=== PATIENT | female | born 1990 | race Caucasian/White ===

== ENCOUNTER 2020-10-27 14:02 | Inpatient (IN) | payer BC, SELFPAY ==
[~2020-10-27] VITALS: Ht 160 cm; Wt 88.0 kg
[2020-10-27] MEDS ORDERED: DINOPROSTONE 10 MG SUPP VG ONE (14:30)
[2020-10-27 15:01] LABS: BASOPHILS % (AUTO) 0.2 % (0.0-2.0); EOSINOPHILS % (AUTO) 0.4 % (0.0-4.0); HEMATOCRIT 32.2 % (36-48); HEMOGLOBIN 10.7 g/dL (12.0-16.0); LYMPHOCYTES # (AUTO) 2.1 K/uL (1.0-5.5); LYMPHOCYTES % (AUTO) 17.7 % (20.5-51.5); MEAN CORPUSCULAR HEMOGLOBIN 30 pg (27-31); MEAN CORPUSCULAR HGB CONC 33 % (32-36); MEAN CORPUSCULAR VOLUME 89 fL (79.0-98.0); MONOCYTES # (AUTO) 0.9 K/uL (0.0-1.0); MONOCYTES % (AUTO) 7.5 % (1.7-9.3); NEUTROPHILS # (AUTO) 8.9 K/uL (1.8-7.7); NEUTROPHILS % (AUTO) 74.2 % (40.0-70.0); PLATELET COUNT (AUTO) 337 K/uL (130-430); RED BLOOD CELL COUNT(AUTO) 3.62 MIL/uL (4.2-6.2); RED CELL DISTRIBUTION WIDTH 13.8 % (9.0-15.0)
[2020-10-27 15:06] LABS: BILIRUBIN,URINE NEGATIVE (NEGATIVE); COLOR,URINE YELLOW (YELLOW); GLUCOSE,URINE NEGATIVE (NEGATIVE); KETONES,URINE TRACE (NEGATIVE); LEUKOCYTE ESTERASE ,URINE NEGATIVE (NEGATIVE); NITRITE, URINE NEGATIVE (NEGATIVE); PROTEIN URINE NEGATIVE (NEGATIVE); UROBILINOGEN,URINE 0.2 (0.2-1.0)
[2020-10-27 15:08] LABS: BLOOD, URINE TRACE (NEGATIVE); CLARITY/URINE SLIGHTLY HAZY (CLEAR)
[2020-10-27 15:14] LABS: BACTERIA,URINE FEW /HPF (None Seen); RBC,URINE 0-3 /HPF (0-3); WBC,URINE NONE SEEN /HPF (0-3)
[2020-10-27 20:33] VITALS: BP_SYST 116
[2020-10-27] MEDS: NALBUPHINE HCL 10 MG/ML AMP IM PRN (22:22)
[2020-10-27] MEDS: LR 1,000 ML IV SCH (22:24)
[2020-10-28] MEDS: MISOPROSTOL 100 MCG TABLET (CYTOTEC) PO PRN ×2 (03:55→05:50)
[2020-10-28] MEDS: LR 1,000 ML IV SCH ×2 (05:50→23:10)
[2020-10-28] MEDS ORDERED: LIDOCAINE JELLY 5 ML TUBE MM PRN (10:00)
[2020-10-28] MEDS ORDERED: MISOPROSTOL 100 MCG TABLET (CYTOTEC) PO PRN (15:00)
[2020-10-28] MEDS ORDERED: OXYTOCIN/0.9 % SODIUM CHLORIDE 1,000 ML IV SCH (15:00)
[2020-10-28] MEDS ORDERED: LIDOCAINE 2% JELLY UROJECT 10 ML MM PRN (15:11)
[2020-10-28] MEDS: NALBUPHINE HCL 10 MG/ML AMP IM PRN (21:47)
[2020-10-28] MEDS ORDERED: fentaNYL CITRATE/PF 100 MCG/2 ML AMP ONE (22:55)
[2020-10-28] MEDS ORDERED: ROPIVACAINE HCL/PF 0.2% 200 ML ONE (22:55)
[2020-10-29] MEDS: LR 1,000 ML IV SCH ×2 (01:20→08:47)
[2020-10-29] MEDS ORDERED: OXYTOCIN/0.9 % SODIUM CHLORIDE 1,000 ML IV ONE ×2 (04:43→11:00)
[2020-10-29] MEDS ORDERED: HYDROcodone/ACETAMIN 5-325 MG TAB (NORCO/ VICODIN) PO PRN (11:00)
[2020-10-29] MEDS ORDERED: METHYLERGONOVINE MALEATE 0.2 MG TABLET PO PRN (11:00)
[2020-10-29] MEDS ORDERED: WITCH HAZEL LEAF 1 MED.PAD MED.PAD TP PRN (11:00)
[2020-10-29] MEDS ORDERED: NALOXONE HCL 0.4 MG/ML AMP (NARCAN) IVP PRN (11:00)
[2020-10-29] MEDS ORDERED: DIPH-TET-PERTUS Vaccine 0.5 ML VIAL (ADACEL) I.M. PRN (11:00)
[2020-10-29] MEDS ORDERED: OXYTOCIN/0.9 % SODIUM CHLORIDE 1,000 ML IV SCH (11:00)
[2020-10-29] MEDS ORDERED: ANUSOL 1 EA SUPP.RECT (PREPARATION H) RC PRN (11:00)
[2020-10-29] MEDS ORDERED: HYDROCORTISONE 0.5% CREAM 28.4 GM CREAM.GM. TP PRN (11:00)
[2020-10-29] MEDS ORDERED: DERMOPLAST SPRAY TP PRN (11:00)
[2020-10-29] MEDS ORDERED: OXYCODONE/ACETAMINOPHEN 5-325 TABLET PO PRN (11:00)
[2020-10-29] MEDS ORDERED: RHO(D) IMMUNE GLOBULIN/MALTOSE 1500 UNITS/1.3 ML (WINHRO) IM PRN (11:00)
[2020-10-29] MEDS ORDERED: LANOLIN 7 GM OINT. TP PRN (11:00)
[2020-10-29] MEDS ORDERED: MEASLES,MUMPS&RUBELLA VACC/PF 12500 UNIT/0.5 ML VIAL SUBQ PRN (11:00)
[2020-10-29] MEDS: IBUPROFEN 600 MG TABLET PO SCH ×3 (12:25→23:34)
[2020-10-29 19:06] LABS: FTA-Ab (T PALLIDUM) Non Reactive (Non Reactive)
[2020-10-29] MEDS ORDERED: TEMAZEPAM 15 MG CAPSULE PO PRN (21:00)
[2020-10-29] MEDS ORDERED: SENNOSIDES/DOCUSATE SODIUM 1 TAB TABLET(SENOKOT-S) PO SCH (21:00)
[2020-10-29] MEDS: OXYCODONE/ACETAMINOPHEN 5-325 TABLET PO PRN (23:35)
[2020-10-30] MEDS: IBUPROFEN 600 MG TABLET PO SCH ×2 (06:38→11:27)
[2020-10-30] MEDS: OXYCODONE/ACETAMINOPHEN 5-325 TABLET PO PRN (06:38)
[2020-10-30 07:22] LABS: BASOPHILS % (AUTO) 0.2 % (0.0-2.0); EOSINOPHILS # (AUTO) 0.1 K/uL (0.0-0.4); EOSINOPHILS % (AUTO) 0.9 % (0.0-4.0); HEMATOCRIT 26.6 % (36-48); HEMOGLOBIN 8.8 g/dL (12.0-16.0); LYMPHOCYTES # (AUTO) 2.2 K/uL (1.0-5.5); LYMPHOCYTES % (AUTO) 21.9 % (20.5-51.5); MEAN CORPUSCULAR HEMOGLOBIN 30 pg (27-31); MEAN CORPUSCULAR HGB CONC 33 % (32-36); MEAN CORPUSCULAR VOLUME 90 fL (79.0-98.0); MONOCYTES # (AUTO) 0.7 K/uL (0.0-1.0); MONOCYTES % (AUTO) 6.5 % (1.7-9.3); NEUTROPHILS # (AUTO) 7.1 K/uL (1.8-7.7); NEUTROPHILS % (AUTO) 70.5 % (40.0-70.0); PLATELET COUNT (AUTO) 245 K/uL (130-430); RED BLOOD CELL COUNT(AUTO) 2.95 MIL/uL (4.2-6.2); RED CELL DISTRIBUTION WIDTH 13.8 % (9.0-15.0); WHITE BLOOD COUNT (AUTO) 10.1 K/uL (4.8-10.8)
[2020-10-30] MEDS ORDERED: DOCUSATE SODIUM 100 MG CAPSULE PO SCH (09:00)
== END 2020-10-30 14:10 | disposition home or self-care (01) | DRG 807 ==
LOC: SPU 14:02
PROVIDERS: ADMIT Specialist; ATTEND Specialist
PROC: 10E0XZZ Delivery of Products of Conception, External Approach (ICD-10-PCS; principal; 2020-10-29)
PROC: 3E0R3BZ Introduction of Anesthetic Agent into Spinal Canal, Percutaneous Approach (ICD-10-PCS; 2020-10-29)
PROC: 3E0P7VZ Introduction of Hormone into Female Reproductive, Via Natural or Artificial Opening (ICD-10-PCS; 2020-10-29)
PROC: 00HU33Z Insertion of Infusion Device into Spinal Canal, Percutaneous Approach (ICD-10-PCS; 2020-10-29)
DX: O69.2XX0 Labor and delivery complicated by other cord entanglement, with compression, not applicable or unspecified (principal); Z37.0 Single live birth; Z20.822 Contact with and (suspected) exposure to COVID-19; Z3A.40 40 weeks gestation of pregnancy
CPT/HCPCS: 36415; 81000; 85025; 86592; 86780; 86886; 86900; 86901; J2300; J2590; J3010

== ENCOUNTER 2021-12-30 16:06 | Observation (INO) | payer BC ==
[~2021-12-30] VITALS: Ht 160 cm; Wt 84.8 kg
[2021-12-30] MEDS ORDERED: MORPHINE SULFATE 10 MG/ML VIAL IM ONE (17:45)
[2021-12-30] MEDS ORDERED: NALOXONE HCL 0.4 MG/ML AMP (NARCAN) IVP PRN (17:45)
[2021-12-30] MEDS ORDERED: BETAMET ACET/BETAMET NA PH 30 MG/5 ML VIAL IM SCH (18:00)
[2021-12-30] MEDS ORDERED: BETAMET ACET/BETAMET NA PH 30 MG/5 ML VIAL IM ONE (18:00)
[2021-12-30] MEDS: BETAMET ACET/BETAMET NA PH 30 MG/5 ML VIAL IM SCH (18:22)
[2021-12-30 20:10] LABS: BASOPHILS # (AUTO) 0.1 K/uL (0.0-0.2); BASOPHILS % (AUTO) 0.5 % (0.0-2.0); EOSINOPHILS # (AUTO) 0.1 K/uL (0.0-0.4); EOSINOPHILS % (AUTO) 0.9 % (0.0-4.0); HEMATOCRIT 31.8 % (36-48); LYMPHOCYTES # (AUTO) 2.6 K/uL (1.0-5.5); LYMPHOCYTES % (AUTO) 22.2 % (20.5-51.5); MEAN CORPUSCULAR VOLUME 88 fL (79.0-98.0); MONOCYTES # (AUTO) 0.7 K/uL (0.0-1.0); MONOCYTES % (AUTO) 6.2 % (1.7-9.3); NEUTROPHILS # (AUTO) 8.1 K/uL (1.8-7.7); NEUTROPHILS % (AUTO) 70.2 % (40.0-70.0); PLATELET COUNT (AUTO) 258 K/uL (130-430); RED BLOOD CELL COUNT(AUTO) 3.62 MIL/uL (4.2-6.2); RED CELL DISTRIBUTION WIDTH 13.7 % (9.0-15.0); WHITE BLOOD COUNT (AUTO) 11.5 K/uL (4.8-10.8)
[2021-12-30 20:16] LABS: ALBUMIN 2.3 g/dL (3.4-4.8); CREATININE 0.58 mg/dL (0.55-1.30); POTASSIUM 3.9 mmol/L (3.5-5.1); TOTAL BILIRUBIN 0.3 mg/dL (0.0-1.0)
[2021-12-30] MEDS: NIFEdipine (O.B. USE ONLY) 10 MG CAPSULE PO PRN ×2 (21:21→22:57)
[2021-12-30] MEDS ORDERED: ceFAZolin SODIUM 1 GM in D5W 100 ML IV SCH (22:00)
[2021-12-30] MEDS: CEFAZOLIN SOD 1 GM in D5W 50 ML IV SCH (22:05)
[2021-12-30] MEDS: LR 1,000 ML IV SCH (23:36)
[2021-12-31] MEDS: NIFEdipine (O.B. USE ONLY) 10 MG CAPSULE PO PRN (01:03)
[2021-12-31] MEDS: CALCIUM CARBONATE 500 MG/ TAB.CHEW PO PRN ×2 (01:04→05:04)
[2021-12-31] MEDS: NIFEdipine (O.B. USE ONLY) 10 MG CAPSULE PO SCH ×2 (04:18→08:37)
[2021-12-31] MEDS: CEFAZOLIN SOD 1 GM in D5W 50 ML IV SCH ×2 (06:05→13:59)
[2021-12-31] MEDS: LR 1,000 ML IV SCH (08:36)
[2021-12-31 08:55] LABS: HEMOGLOBIN 10.5 g/dL (12.0-16.0); MEAN CORPUSCULAR HEMOGLOBIN 30 pg (27-31); MEAN CORPUSCULAR HGB CONC 33 % (32-36)
[2021-12-31] MEDS ORDERED: LANSOPRAZOLE 30 MG CAPSULE.DR PO ONE (09:15)
[2021-12-31] MEDS ORDERED: NIFEdipine (O.B. USE ONLY) 10 MG CAPSULE PO SCH (15:00)
[2021-12-31] MEDS: BETAMET ACET/BETAMET NA PH 30 MG/5 ML VIAL IM SCH (18:43)
[2022-01-01] MEDS ORDERED: LANSOPRAZOLE 30 MG CAPSULE.DR PO SCH (07:00)
== END 2021-12-31 18:50 | disposition home or self-care (01) ==
LOC: SPU 16:06
PROVIDERS: ADMIT Specialist; ATTEND Specialist
DX: O62.9 Abnormality of forces of labor, unspecified (principal); Z3A.34 34 weeks gestation of pregnancy
CPT/HCPCS: 96361 ×2; 96365; 96372 ×2; 80053; 81002; 85025; 36415; 96366; 76705; J0702; J0690; J2270; J7060; G0378 ×2